=== PATIENT | female | born 1950 | race Caucasian/White ===

== ENCOUNTER → 2020-08-31 | Outpatient (CLI) | payer MEDICARE ==
[2020-08-31] VITALS (13 sets, daily range): BP systolic 148–213; BP diastolic 56–89
[~2020-08-31] VITALS: Ht 160 cm; Wt 142.9 kg
[~2020-08-31] MED LIST: 0.9 % SODIUM CHLORIDE 10 ML DISP.SYRIN. IV PRN; ASPI-482 PO; ASPI-630 PO; ATORVASTATIN CA80 MG PO; CARV12.511 PO; CONTRAST GIVEN. MC PRN; FERR325T14 PO; HEPARIN for ARTERIAL LINE 1,500 ML ONE; HEPARIN for IV BOLUS 10,000 UNIT/10 ML VIAL. IART ONE; HEPARIN for IV BOLUS 10,000 UNIT/10 ML VIAL. ONE; HYDR12.58 PO; IODIXANOL 320 MG/ML 100 ML VIAL. IART ONE; IODIXANOL 320 MG/ML 100 ML VIAL. ONE; ISOS30TA68 PO; LEVO100T5 PO; LIDOCAINE 1% Multi-Dose 20 ML VIAL. INJ ONE; LIDOCAINE 1% Multi-Dose 20 ML VIAL. ONE; LOSA25TA PO; MELO15TA23 PO; METF500T16 PO; MIDAZOLAM HCL/PF 2 MG/2 ML VIAL. IV ONE; MIDAZOLAM HCL/PF 2 MG/2 ML VIAL. ONE; NIAC500T9 PO; NITROGLYCERIN 200 MCG/2 ML SYRINGE FOR CATH/VASC LAB. IART ONE; NITROGLYCERIN 200 MCG/2 ML SYRINGE FOR CATH/VASC LAB. ONE; NITROGLYCERIN SUBLINGUAL 0.4 MG BOTTLE OF 25. SL PRN; OMEG1CAP28 PO; OMEP40CA45 PO; OXYC1TAB15 PO; Oxycodone Hcl/Acetaminophen PO; POTA20TA4 PO; VERAPAMIL 5 MG/2 ML VIAL. IART ONE; VERAPAMIL 5 MG/2 ML VIAL. ONE; WARF1TAB2 PO; Warfarin Sodium MC; fentaNYL PF VIAL 100 MCG/2 ML VIAL IV ONE; fentaNYL PF VIAL 100 MCG/2 ML VIAL ONE
[2020-08-31 08:05] LABS: HEMATOCRIT 39.1 % (36.0-47.0); HEMOGLOBIN 12.7 g/dL (12.0-15.5); RED BLOOD COUNT 4.18 x10^6/uL (3.50-5.40); RED CELL DISTRIBUTION WIDTH 14.4 % (11.5-14.5); WHITE BLOOD COUNT 6.9 x10^3/uL (4.0-11.0)
[2020-08-31 08:10] LABS: CALCIUM 9.4 mg/dL (8.5-10.1); CREATININE 0.9 mg/dL (0.6-1.0); GFR 61.9; POTASSIUM 4.5 mmol/L (3.5-5.1)
--- NOTE | 2020-08-31 10:39 | PDOC1 ---
History and Physical Visit Information Date of Admission: Source: Caregiver, Patient History of Present Illness History of Present Illness Cintia is a very pleasant 70-year-old woman with past medical history as noted below who presents to the hospital today for a planned outpatient cardiac catheterization in the setting of an abnormal stress test. She was seen in the office approximately 2 to 3 months ago and due to some exertional dyspnea and chest pressure she underwent an echocardiogram and stress testing. She had mild to moderate ischemia in the anteroseptal region and therefore further evaluation was discussed with the patient and her family with a cardiac catheterization and she wished to proceed. Cardiac Risk Factors Comments 1. Morbid obesity 2. Hypertension 3. Dyslipidemia 4. Diabetes type 2 Current Medications Current Medications Current Medications Fentanyl Citrate (Fentanyl 2ml Vial) 100 mcg 1X ONCE IV Last administered on 08/31/20at 09:08; Start 08/31/20 at 09:00; Stop 08/31/20 at 09:07; Status DC Fentanyl Citrate (Fentanyl 2ml Vial) 100 mcg STK-MED ONCE .ROUTE ; Start 08/31 at 08:07; Stop 08/31/20 at 08:07; Status DC Fentanyl Citrate (Fentanyl 2ml Vial) 100 mcg STK-MED ONCE .ROUTE ; Start at 09:23; Stop 08/31/20 at 09:23; Status DC Heparin Sodium (Porcine) (Heparin Sodium) 2,500 unit 1X ONCE IART Last adminis tered on 08/31/20at 09:28; Start 08/31/20 at 09:00; Stop 08/31/20 at 09:07; Status DC Heparin Sodium (Porcine) (Heparin Sodium) 10,000 unit STK-MED ONCE .ROUTE ; Start 08/31/20 at 08:29; Stop 08/31/20 at 08:30; Status DC Heparin Sodium/ Sodium Chloride 1,500 ml @ As Directed STK-MED ONCE .ROUTE ; Start 08/31/20 at 07:41; Stop 08/31/20 at 07:41; Status DC Heparin Sodium/ Sodium Chloride (HEPARIN for ARTERIAL LINE FLUSH) 1,000 unit 1X ONCE IART Last administered on 08/31/20at 09:00; Start 08/31/20 at 09:00; Stop 08/31/20 at 09:07; Status DC Heparin Sodium/ Sodium Chloride (HEPARIN for ARTERIAL LINE FLUSH) 1,000 unit 1X ONCE IART Last administered on 08/31/20at 09:00; Start 08/31/20 at 09:00; Stop 08/31/20 at 09:07; Status DC Info (CONTRAST GIVEN -- Rx MONITORING) 1 each PRN DAILY PRN MC SEE COMMENTS; Start 08/31/20 at 09:15; Stop 09/02/20 at 09:14 Iodixanol (Visipaque 320) 100 ml 1X ONCE IART Last administered on 08/31/20at 09:53; Start 08/31/20 at 09:00; Stop 08/31/20 at 09:07; Status DC Iodixanol (Visipaque 320) 100 ml STK-MED ONCE .ROUTE ; Start 08/31/20 at 07:41; Stop 08/31/20 at 07:41; Status DC Lidocaine HCl (Lidocaine 1% 20ml Vial) 20 ml 1X ONCE INJ Last administered on 08/31/20at 09:28; Start 08/31/20 at 09:00; Stop 08/31/20 at 09:07; Status DC Lidocaine HCl (Lidocaine 1% 20ml Vial) 20 ml STK-MED ONCE .ROUTE ; Start 08/31/20 at 07:41; Stop 08/31/20 at 07:41; Status DC Midazolam HCl (Versed) 2 mg 1X ONCE IV Last administered on 08/31/20at 09:08; Start 08/31/20 at 09:00; Stop 08/31/20 at 09:07; Status DC Midazolam HCl (Versed) 2 mg STK-MED ONCE .ROUTE ; Start 08/31/20 at 08:07; Stop 08/31/20 at 08:07; Status DC Midazolam HCl (Versed) 2 mg STK-MED ONCE .ROUTE ; Start 08/31/20 at 09:23; Stop 08/31/20 at 09:23; Status DC Nitroglycerin (Nitroglycerin) 200 mcg 1X ONCE IART Last administered on 08/31/20at 09:28; Start 08/31/20 at 09:00; Stop 08/31/20 at 09:07; Status DC Nitroglycerin (Nitroglycerin) 200 mcg STK-MED ONCE .ROUTE ; Start 08/31/20 at 08:30; Stop 08/31/20 at 08:30; Status DC Verapamil HCl (Verapamil) 2.5 mg 1X ONCE IART Last administered on 08/31/20at 09:28; Start 08/31/20 at 09:00; Stop 08/31/20 at 09:07; Status DC Verapamil HCl (Verapamil) 5 mg STK-MED ONCE .ROUTE ; Start 08/31/20 at 08:29; Stop 08/31/20 at 08:30; Status DC Allergies Allergies Allergies Coded Allergies Type Severity Reaction Last Updated Verified Penicillins Allergy Severe SWELLING 02/01/14 Yes Social History Smoke: No ALCOHOL: none Drugs: None Lives: Alone Family History Comments Noncontributory ROS Review of System Positive for exertional dyspnea and chest pressure. Negative for syncope, palpitations, orthopnea or PND. Otherwise negative unless noted above in HPI Physical Exam Comments The patient appeared well nourished and normally developed. Head exam is unremarkable. No scleral icterus or corneal arcus noted. Neck is without jugular venous distension, thyromegaly, or carotid bruits. Carotid upstrokes are brisk bilaterally. Lungs are clear to auscultation and percussion. Cardiac exam reveals the PMI to be normally sized and situated. Rhythm is regular. First and second heart sounds normal. No murmurs, rubs or gallops. Abdominal exam reveals normal bowel sounds, no masses, no organomegaly and no aortic enlargement. Extremities are nonedematous, right radial pulse at 1+, left radial pulse of 2+. Normal bilateral Claudio's testing. Msk: No traumua Neuro: No focal deficits Vitals VITALS Vital Signs Date Time Temp Pulse Resp B/P (MAP) Pulse Ox O2 Delivery O2 Flow Rate FiO2 08/31/20 10:10 52 22 98 Nasal Cannula 2.0 08/31/20 08:24 98.2 148/71 (96) 98.2 Labs Labs Laboratory Tests Test 08/31/20 07:35 White Blood Count 6.9 x10^3/uL (4.0-11.0) Red Blood Count 4.18 x10^6/uL (3.50-5.40) Hemoglobin 12.7 g/dL (12.0-15.5) Hematocrit 39.1 % (36.0-47.0) Mean Corpuscular Volume 94 fL (79-100) Mean Corpuscular Hemoglobin 30 pg (25-35) Mean Corpuscular Hemoglobin Concent 33 g/dL (31-37) Red Cell Distribution Width 14.4 % (11.5-14.5) Platelet Count 230 x10^3/uL (140-400) Prothrombin Time 13.0 SEC (11.7-14.0) Prothromb Time International Ratio 1.0 (0.8-1.1) Sodium Level 140 mmol/L (136-145) Potassium Level 4.5 mmol/L (3.5-5.1) Chloride Level 103 mmol/L (98-107) Carbon Dioxide Level 29 mmol/L (21-32) Anion Gap 8 (6-14) Blood Urea Nitrogen 21 mg/dL (7-20) Creatinine 0.9 mg/dL (0.6-1.0) Estimated GFR (Cockcroft-Gault) 61.9 Glucose Level 121 mg/dL (70-99) Calcium Level 9.4 mg/dL (8.5-10.1) Laboratory Tests Test 08/31/20 07:35 White Blood Count 6.9 x10^3/uL (4.0-11.0) Red Blood Count 4.18 x10^6/uL (3.50-5.40) Hemoglobin 12.7 g/dL (12.0-15.5) Hematocrit 39.1 % (36.0-47.0) Mean Corpuscular Volume 94 fL (79-100) Mean Corpuscular Hemoglobin 30 pg (25-35) Mean Corpuscular Hemoglobin Concent 33 g/dL (31-37) Red Cell Distribution Width 14.4 % (11.5-14.5) Platelet Count 230 x10^3/uL (140-400) Prothrombin Time 13.0 SEC (11.7-14.0) Prothromb Time International Ratio 1.0 (0.8-1.1) Sodium Level 140 mmol/L (136-145) Potassium Level 4.5 mmol/L (3.5-5.1) Chloride Level 103 mmol/L (98-107) Carbon Dioxide Level 29 mmol/L (21-32) Anion Gap 8 (6-14) Blood Urea Nitrogen 21 mg/dL (7-20) Creatinine 0.9 mg/dL (0.6-1.0) Estimated GFR (Cockcroft-Gault) 61.9 Glucose Level 121 mg/dL (70-99) Calcium Level 9.4 mg/dL (8.5-10.1) ECG Comments Left anterior fascicular block EKG: Sinus bradycardia VTE Prophylaxis Ordered VTE Prophylaxis Devices: No VTE Pharmacological Prophylaxi: No Assessment/Plan Assessment/Plan 1. Plan for cardiac catheterization for evaluation of dyspnea and chest pressure in the setting of abnormal stress testing. Risks and benefits discussed with the patient. Justicifation of Admission Dx: Justifications for Admission: Justification of Admission Dx: N/A CAT DONALDSON MD Aug 31, 2020 10:39
--- NOTE | 2020-08-31 11:17 | CARD ---
MR#: [id number] Date of Study: 08/31/2020 Ordering Physician: CAT DONALDSON, Referring Physician: CAT DONALDSON, Tech: DILIP LINDA RTR APPROVED REPORT Technologist: DILIP LINDA RTR Nurse: Suki Alberto RN Procedure(s) performed: MODERATE SEDATION TIME: 60 MINUTES FLUORO TIME: 5.2 MIN DOSE: 85.9 GYCM2 CONTRAST: [facility], Coronary angiography HISTORY The patient is a 70 year-old female with a history of : diabetes mellitus with treatment, hypertensio n, dyslipidemia. INDICATION The indication(s) include : positive stress test, unstable angina , dyspnea. [facility] Clinical Frailty Scale [facility] Clinical Frailty Scale: Severely Frail Heart Failure Heart Failure: Yes If Yes, Newly Diagnosed: No If Yes, HF Type: Diastolic If Yes, NYHA Class: Class III CASE TECHNIQUE IV conscious sedation was used throughout procedure with appropriate monitoring and was performed in the presence of a registered nurse who was an independent trained observer other than the physician p erforming the procedure. During this case, Fluoroscopy and low osmolar contrast were used for imaging . Specimen(s) Removed: N/A Estimated Blood loss: 15 cc's. PROCEDURE NARRATIVE Clinical information: 70-year-old woman with an abnormal stress test in the setting of chest pressure and dyspnea presented for elective outpatient cardiac catheterization. Procedure details: After appropriate informed consent, the right wrist was prepped and draped in usual sterile fashion. Under 1% lidocaine local anesthesia a 6 [place] sheath was initially attempted to be placed in the [facility] radial artery but due to severe spasm the sheath was not able to be advanced past the skin entry site. Therefore this access site was abandoned and the left wrist was prepped and draped in usual st erile fashion and a 6 [place] sheath was placed in the left radial artery without any difficulty. [place] gnostic angiography was performed with a 5 [place] JL4 and JR4 catheters. Left ventricular end-diasto lic pressure was obtained with a 5 [place] pigtail catheter and a pullback was performed. Findings Left main is a large-caliber vessel with normal angiographic appearance LAD is a moderate to large caliber vessel with a proximal calcified eccentric 50% lesion. D1 is a moderate caliber vessel with mild luminal irregularities Left circumflex is a moderate to large caliber vessel with mild irregularities up to 30% OM1 is a small to moderate caliber vessel with normal angiographic appearance LPL 1 is a moderate caliber vessel with mild irregularities of up to 30% RCA is a small to moderate caliber codominant vessel with a proximal to mid 50% stenosis. Conclusion 1. Mildly elevated left-sided filling pressures, LVEDP 19 mmHg 2. One-vessel coronary artery disease involving the proximal LAD. Recommendations 1. Aggressive medical management with initiation of nitrates. Patient unable to tolerate beta-block ers due to bradycardia. Repeat ischemic testing in 1 year. Signed by : Cat Donaldson, Electronically Approved : 08/31/2020 11:16:16
--- NOTE | 2020-08-31 11:26 | PDOC ---
MODERATE SEDATION ASSESSMENT RISKS/ALTERNATIVES Risks/Alternatives Risks and alternatives of this type of sedation and procedure discussed with: RISK/ALTERNATIVES: Patient H & P ON CHART H & P H & P on chart and reviewed for co-morbid conditions and appropriate labs. H&P ON CHART: Yes STATUS PREG STATUS ASSESSED: N/A MEDS/ALLERGIES REVIEWED Meds/Allergies Reviewed Medications and Allergies including time and route of recently administered narcotics and sedatives. MEDS/ALLERGIES REVIEWED: Yes ASA RATING ASA RATING: II AIRWAY ASSESSMENT Airway Assessment Airway patency, oral function limitations, presence of caps, crowns, dentures, partials, and ability to extend neck assessed. AIRWAY ASSESSMENT: Yes MALLAMPATI SCORE MALLAMPATI SCORE: II PRE-SEDATION ASSESSMENT PRE-SEDATION ASSESSMENT: Yes CAT DONALDSON MD Aug 31, 2020 11:26
--- NOTE | 2020-08-31 13:17 | NUR ---
PIV removed. Dressing applied to both radial sites, no bleeding noted. Armboard re-applied to L arm, no armboard on R arm-- per MD order. Patient given instructions on radial site care, sedation. Patient's daughter present. Verbalized understand. RN stressed importance of not using left wrist and to be very cautious w/ use of R wrist. Written prescription for Imdur given to patient's daughter. RN called in to [facility] pharmacy. All belongings taken with patient at time of d/c. Including purse and cell phone. Taken to vehicle via wheelchair. Daughter driving.
== END | disposition home or self-care (01) ==
LOC: CCL 07:03
PROVIDERS: ATTEND Internal Medicine Cardiovascular Disease
DX: I25.110 Atherosclerotic heart disease of native coronary artery with unstable angina pectoris (principal); R94.39 Abnormal result of other cardiovascular function study; R06.00 Dyspnea, unspecified; E11.9 Type 2 diabetes mellitus without complications; I10 Essential (primary) hypertension; E78.00 Pure hypercholesterolemia, unspecified; E66.01 Morbid (severe) obesity due to excess calories; E03.9 Hypothyroidism, unspecified; G47.30 Sleep apnea, unspecified; M19.90 Unspecified osteoarthritis, unspecified site; Z85.828 Personal history of other malignant neoplasm of skin; Z90.49 Acquired absence of other specified parts of digestive tract; Z98.890 Other specified postprocedural states; Z79.899 Other long term (current) drug therapy; Z79.82 Long term (current) use of aspirin; Z79.84 Long term (current) use of oral hypoglycemic drugs; Z88.0 Allergy status to penicillin
CPT/HCPCS: 36415; 80048; 85027; 85610; 93458; 99152; 99153; C1769; C1894; J1644; J2250; J3010; J3490; Q9967